=== PATIENT | male | born 1950 | race Asian ===

== ENCOUNTER → 2018-08-27 | Outpatient (CLI) | payer MEDICARE | END | disposition home or self-care (01) | LOC: CFH 06:53 | PROVIDERS: ATTEND Internal Medicine Cardiovascular Disease | DX: I34.0 Nonrheumatic mitral (valve) insufficiency (principal); I35.8 Other nonrheumatic aortic valve disorders; I25.5 Ischemic cardiomyopathy; I48.91 Unspecified atrial fibrillation; I10 Essential (primary) hypertension; E78.5 Hyperlipidemia, unspecified; E11.9 Type 2 diabetes mellitus without complications; I25.2 Old myocardial infarction | CPT/HCPCS: 93306 ==

== ENCOUNTER → 2018-10-17 | Outpatient (CLI) | payer MEDICARE | END | disposition home or self-care (01) | LOC: CFH 09:59 | PROVIDERS: ATTEND Family Medicine | DX: S22.49XA Multiple fractures of ribs, unspecified side, initial encounter for closed fracture (principal); X58.XXXA Exposure to other specified factors, initial encounter; Y93.89 Activity, other specified; Y92.89 Other specified places as the place of occurrence of the external cause; Y99.8 Other external cause status | CPT/HCPCS: 71046 ==

== ENCOUNTER 2019-03-17 13:54 | Emergency (ER) | payer MEDICARE ==
[~2019-03-17] VITALS: Ht 170.2 cm; Wt 82.1 kg
--- NOTE | 2019-03-17 14:47 | NUR ---
ASSUMED CARE OF PT AT THIS TIME. PT AO X 4. SKIN PWD. RESP EVEN AND UNLABORED. PT DENIES PRIETO, VISION CHANGES, N/V OR LOC. PERRLA. PT NONTENDER MIDLINE NECK. SIGNIFICANT OTHER AT BEDSIDE. PT DENIES ANY NEEDS AT THIS TIME. CALL LIGHT WITHIN REACH.
[2019-03-17 14:50] VITALS: BP 126/73
[2019-03-17] MEDS ORDERED: IRBE75TA10 PO (14:58)
[2019-03-17] MEDS ORDERED: LINA1TAB9 PO (14:58)
[2019-03-17] MEDS ORDERED: EMPA25TA PO (14:58)
[2019-03-17] MEDS ORDERED: RIVA20TA PO (14:58)
[2019-03-17] MEDS ORDERED: CARV6.252 PO (14:58)
--- NOTE | 2019-03-17 14:58 | NUR ---
THIS IS A 68 YO MALE WHO PRESENTS TO THE ER AFTER A MGLF IN WHICH PT WAS PULLING ON A PICK AXE AND FELL BACKWARD HITTING HIS HEAD. PT DENIES PRIETO, SORE TO TOUCH WHERE PT HIT HEAD. SMALL ABRAISION NOTED TO BACK OF HEAD. PT NONTENDER TO PALPATION ON MIDLINE NECK. PT DENIES LOC. PT AO X 4. PERRLA. PT DENIES VISION CHANGES. SKIN PWD. RESP EVEN AND UNLABORED.
[2019-03-17] MEDS ORDERED: DIPH,PERTUSS(ACELL),TET VAC/PF 0.5 ML IM-VACC ONE ×2 (15:00→15:08)
[2019-03-17] MEDS ORDERED: BACITRACIN ZINC OINT 500U/GM, 0.9 GM ONE (15:27)
--- NOTE | 2019-03-17 16:18 | NUR ---
Patient given discharge instructions and they have confirmed that they understand the instructions. Patient ambulatory with steady gait.
== END 2019-03-17 16:42 | disposition home or self-care (01) ==
LOC: ED 16:15
DX: S00.01XA Abrasion of scalp, initial encounter (principal); M54.2 Cervicalgia; E11.9 Type 2 diabetes mellitus without complications; E78.5 Hyperlipidemia, unspecified; I48.91 Unspecified atrial fibrillation; Z87.891 Personal history of nicotine dependence; W01.0XXA Fall on same level from slipping, tripping and stumbling without subsequent striking against object, initial encounter; Y93.89 Activity, other specified; Y92.89 Other specified places as the place of occurrence of the external cause; Y99.8 Other external cause status
CPT/HCPCS: 51702; 70450; 90471; 90715; 99284